=== PATIENT | male | born 1950 | race Caucasian/White ===

== ENCOUNTER 2017-10-18 14:52 | Inpatient (IN) | payer OTHER ==
[~2017-10-18] VITALS: Ht 188 cm; Wt 97.5 kg
[~2017-10-18 14:52] MED LIST: ASPIR 8181 MG PO; ATORVASTATIN CA10 MG PO; COZAAR50 MG PO
[2017-10-24] MEDS ORDERED: DOCUSATE SODIU100 MG PO (11:38)
[2017-10-24] MEDS ORDERED: GABAPENTIN800 MG PO (11:38)
[2017-10-24] MEDS ORDERED: AMOX-CLAV 875-1 EACH PO (11:39)
[2017-10-24] MEDS ORDERED: PERCOCET 5-3251 EACH PO (11:40)
[2017-10-24] MEDS ORDERED: CLONAZEPAM1 MG PO (11:40)
== END 2017-10-24 17:10 | DRG 455 ==
LOC: PED 10-23 06:30 → O/R 10-23 06:30 → SURG 10-23 11:06 → PED 10-23 19:02
PROVIDERS: Orthopaedic Surgery Orthopaedic Surgery of the Spine
PROC: 0SG1071 Fusion of 2 or more Lumbar Vertebral Joints with Autologous Tissue Substitute, Posterior Approach, Posterior Column, Open Approach (ICD-10-PCS; 2017-10-23)
PROC: 0ST40ZZ Resection of Lumbosacral Disc, Open Approach (ICD-10-PCS; 2017-10-23)
PROC: 0SG30AJ Fusion of Lumbosacral Joint with Interbody Fusion Device, Posterior Approach, Anterior Column, Open Approach (ICD-10-PCS; 2017-10-23)
PROC: 07DS3ZZ Extraction of Vertebral Bone Marrow, Percutaneous Approach (ICD-10-PCS; 2017-10-23)
PROC: 0SG30A0 Fusion of Lumbosacral Joint with Interbody Fusion Device, Anterior Approach, Anterior Column, Open Approach (ICD-10-PCS; principal; 2017-10-23 16:00)
DX: M47.27 Other spondylosis with radiculopathy, lumbosacral region (principal); M48.07 Spinal stenosis, lumbosacral region; M41.57 Other secondary scoliosis, lumbosacral region; M51.17 Intervertebral disc disorders with radiculopathy, lumbosacral region; I10 Essential (primary) hypertension